=== PATIENT | male | born 1970 | race Caucasian/White ===

== ENCOUNTER 2017-12-07 07:12 | Emergency (ER) | payer SELFPAY ==
[2017-12-07 07:28] VITALS: BP 152/98
--- NOTE | 2017-12-07 07:38 | ED Physician Documentation ---
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 Has not seen a dentist due to financial issues. Had been treating toothache with BC powder but has not worked the past 3 days. Denies any trauma, fever, drooling. Review of Systems Ten Systems: 10 systems reviewed and negative Constitutional: denies: Fever Ears: denies: Ear pain Nose: denies: Rhinorrhea / runny nose, Foreign Body Throat: reports: Dental pain / toothache. denies: Oral lesions / sores, Sore throat Cardiac: denies: Chest pain / pressure PD PAST MEDICAL HISTORY - Past Medical History Past Medical History: No - Past Surgical History Past Surgical History: No - Present Medications Home Medications: Ambulatory Orders Medication Instructions Recorded Confirmed Cephalexin [Keflex] 500 mg PO TID #28 capsule 12/07/17 Hydrocodone/Acetaminophen 1 each PO Q6H PRN #14 tablet 12/07/17 [Hydrocodon-Acetaminophen 5-325] Ibuprofen [Motrin] 600 mg PO Q6H PRN #30 tab 12/07/17 - Allergies Allergies/Adverse Reactions: Allergies Allergy/AdvReac Type Severity Reaction Status Date / Time morphine Allergy Edema Verified 12/07/17 07:22 - Social History Does the pt smoke?: No Smoking Status: Current every day smoker Does the pt drink ETOH?: No Does the pt have substance abuse?: No Substance Use and Type: Marijuana - Family History Family history: reports: Non contributory PD ED PE NORMAL - Vitals Vital signs reviewed: Yes - General General: Alert and oriented X 3, No acute distress - HEENT HEENT: Atraumatic, Moist mucous membranes, Pharynx benign, Other (Diffused dental caries and plaques; a few teeth missing. Tooth #17 with broken with partially missing enamel and a hole and tender to palpation. Tooth #32 with a hole but not tender to percussion. Left jaw slightly more swollen than the right) - Neck Neck: Supple, no meningeal sign, No adenopathy - Cardiac Cardiac: Strong equal pulses - Respiratory Respiratory: No respiratory distress - Derm Derm: Warm and dry - Extremities Extremities: No deformity, Other (ambulatory) - Neuro Neuro: Alert and oriented X 3 - Psych Psych: Normal mood, Normal affect Results - Vitals Vitals: Vital Signs - 24 hr 12/07/17 07:18 Temperature 36.1 C L Heart Rate 94 Respiratory 16 Rate Blood Pressure 152/98 H O2 Saturation 99 Oxygen O2 Source Room air PD MEDICAL DECISION MAKING - ED course Complexity details: considered differential (dental caries, fracture, abscess, gingivitis), d/w patient (community resources including dentists since pt likes [place] and [place]. Discussed hydrocodone side effects and prevention. Will discharge on motrin, hydrocodone and keflex. Pt informed me he had taken hydrocodone before without reactions.) - Sepsis Event Vital Signs: Vital Signs - 24 hr 12/07/17 07:18 Temperature 36.1 C L Heart Rate 94 Respiratory 16 Rate Blood Pressure 152/98 H O2 Saturation 99 Oxygen O2 Source Room air Departure - Departure Disposition: 01 Home, Self Care Clinical Impression: Pain due to dental caries, Dental caries Condition: Good Instructions: ED Tooth Pain, ED Cavity Dental Prescriptions: Cephalexin [Keflex] 500 mg PO TID #28 capsule Hydrocodone/Acetaminophen [Hydrocodon-Acetaminophen 5-325] 1 each PO Q6H PRN #14 tablet PRN Reason: pain Ibuprofen [Motrin] 600 mg PO Q6H PRN #30 tab PRN Reason: Pain Comments: CALL FOR A DENTAL APPOINTMENT A.S.A.P. TAKE THE MEDS PRESCRIBED. MAINTAIN SAFETY WHILE TAKING HYDROCODONE - NO ALCOHOL, NO DRIVING, NO WORKING WITH MACHINERIES. PREVENT CONSTIPATION - TAKE OTC STOOL SOFTENER, DRINK LOTS OF WATER, EAT HIGH FIBER FOODS. WHEN TAKING MOTRIN TAKE IT WITH FOOD. FINISH THE ANTIBIOTIC KEFLEX PRESCRIBED. IF WORSE RETURN TO THE E.R.
== END 2017-12-07 08:02 | disposition home or self-care (01) ==
LOC: ED 07:12
DX: K02.9 Dental caries, unspecified (principal); F17.200 Nicotine dependence, unspecified, uncomplicated
CPT/HCPCS: 99283

== ENCOUNTER 2019-03-13 10:56 | Emergency (ER) | payer SELFPAY ==
--- NOTE | 2019-03-13 12:23 | XRAY Report ---
Reason: pain, swelling rt hand Procedure Date: 03/13/2019 Accession Number: [id number] / [id number] Procedure: XR - Hand 3 View RT CPT Code: Final Report FULL RESULT: EXAM: RIGHT HAND RADIOGRAPHY EXAM DATE: 03/13/2019 11:59 AM. CLINICAL HISTORY: Right hand pain and swelling after trauma. COMPARISON: None. TECHNIQUE: 3 views. FINDINGS: Bones: An acute nondisplaced fracture of the mid diaphysis of the fifth metacarpal is present. No significant angulation. An old healed fracture defect about the proximal third metacarpal present. Joints: Normal. No subluxations. Soft Tissues: Some soft tissue swelling at the fracture site present. IMPRESSION: 1. Nondisplaced acute transverse fracture mid diaphysis fifth metacarpal. 2. Probable old proximal third metacarpal healed fracture. RADIA
[2019-03-13] MEDS ORDERED: HYDROcod/ACETAM 5/325 MG TABLET PO STA (12:59)
[2019-03-13 13:01] VITALS: BP 143/91
--- NOTE | 2019-03-13 13:05 | ED Physician Documentation ---
PD HPI UPPER EXT INJURY - Stated complaint Stated Complaint: RT HAND PX - Chief complaint Chief Complaint: Ext Problem - History obtained from History obtained from: Patient - History of Present Illness Location: Right (He got his hand caught between 2 heavy implements the other day and has severe pain in the right hand.) Review of Systems Constitutional: reports: Reviewed and negative Cardiac: reports: Reviewed and negative Respiratory: reports: Reviewed and negative PD PAST MEDICAL HISTORY - Past Medical History Past Medical History: No HEENT: Other Other Past Medical History: Seasonal Allergies - Past Surgical History Past Surgical History: No - Present Medications Home Medications: Ambulatory Orders Medication Instructions Recorded Confirmed Cephalexin [Keflex] 500 mg PO TID #28 capsule 12/07/17 Hydrocodone/Acetaminophen 1 each PO Q6H PRN #14 tablet 12/07/17 [Hydrocodon-Acetaminophen 5-325] Ibuprofen [Motrin] 600 mg PO Q6H PRN #30 tab 12/07/17 Hydrocodone/Acetaminophen 1 - 2 each PO Q6H PRN #14 tablet 03/13/19 [Hydrocodon-Acetaminophen 5-325] - Allergies Allergies/Adverse Reactions: Allergies Allergy/AdvReac Type Severity Reaction Status Date / Time morphine Allergy Edema Verified 03/13/19 11:45 - Social History Does the pt smoke?: No Smoking Status: Never smoker Does the pt drink ETOH?: No Does the pt have substance abuse?: No - Immunizations Immunizations are current?: No Immunizations: TDAP current <10years PD ED PE NORMAL - Vitals Vital signs reviewed: Yes - General General: Alert and oriented X 3, No acute distress - Extremities Extremities: Other (Enter and swell along the fifth metacarpal of the right hand with limited range of motion due to pain but no loss of saccade or neurovascular deficit in the fingers.) - Neuro Neuro: Alert and oriented X 3, Normal speech Results - Vitals Vitals: Vital Signs - 24 hr 03/13/19 03/13/19 11:41 13:00 Temperature 37.2 C 36.8 C Heart Rate 88 88 Respiratory 16 18 Rate Blood Pressure 144/87 H 143/91 H O2 Saturation 99 98 Oxygen O2 Source Room air - Rads (name of study) R hand 3v Radiology: EMP read contemporaneously (Nondisplaced acute fracture of the midshaft of the fifth metacarpal) Procedures - Splint (location) R hand Splint applied by: Tech Type of splint: Fiberglass, Short arm, Ulnar gutter Other: Patient tolerated well, No complications, Neurovascular intact Departure - Departure Disposition: 01 Home, Self Care Clinical Impression: Fracture of fifth metacarpal bone Qualifiers: Encounter type: initial encounter Fracture type: closed Metacarpal location: shaft Fracture alignment: nondisplaced Laterality: right Qualified Code(s): S62.356A - Nondisplaced fracture of shaft of fifth metacarpal bone, right hand, initial encounter for closed fracture Condition: Good Record reviewed to determine appropriate education?: Yes Instructions: ED Cast Care Fiberglass Follow-Up: [facility] [Provider Group] - Within 1 week Prescriptions: Hydrocodone/Acetaminophen [Hydrocodon-Acetaminophen 5-325] 1 - 2 each PO Q6H PRN #14 tablet PRN Reason: pain Comments: Keep the splint on and dry, do not remove it. Follow-up with the orthopedic surgeon within the week, call today for an appointment. Do not drink or drive while taking narcotic pain medication. Note that many narcotic pain relievers also contain Tylenol/acetaminophen. Please ensure that your total dose of acetaminophen from all sources does not exceed 3 g (3000 mg) per day. You may get constipated while on this medication. Take a stool softener such as Colace twice a day while you are on it. Also add an [id number] laxative such as senna or MiraLAX on any day that you do not have a bowel movement. If you received a narcotic pain medication or sedative while in the emergency department, do not drive for the next 24 hours. Forms: Activity restrictions
== END 2019-03-13 13:11 | disposition home or self-care (01) ==
LOC: ED 10:56
DX: S62.356A Nondisplaced fracture of shaft of fifth metacarpal bone, right hand, initial encounter for closed fracture (principal); W23.0XXA Caught, crushed, jammed, or pinched between moving objects, initial encounter; Y93.E6 Activity, residential relocation
CPT/HCPCS: 73130; 99283; A9270

== ENCOUNTER 2019-04-29 13:27 | Emergency (ER) | payer SELFPAY ==
--- NOTE | 2019-04-29 14:57 | ED Physician Documentation ---
History of Present Illness - Stated complaint Stated Complaint: WORK NOTE - Chief complaint Chief Complaint: General - History obtained from History obtained from: Patient - History of Present Illness Timing: How many weeks ago (6-8) Pain level max: 0 Pain level now: 0 - Additonal information Additional information: 49-year-old male presents to the emergency department stating that he broke his right hand in 2 places approximately 6 to 7 weeks ago. He states he took his splint off a few days ago. Has no symptoms in the hand. Never followed up with orthopedics and wants a release back to work. Nothing makes it better or worse. Review of Systems Constitutional: denies: Fever, Chills Respiratory: denies: Cough GI: denies: Vomiting PD PAST MEDICAL HISTORY - Past Medical History Past Medical History: Yes HEENT: Other - Past Surgical History Past Surgical History: No - Present Medications Home Medications: Ambulatory Orders Medication Instructions Recorded Confirmed No Known Home Medications 04/29/19 04/29/19 - Allergies Allergies/Adverse Reactions: Allergies Allergy/AdvReac Type Severity Reaction Status Date / Time morphine Allergy Edema Verified 04/29/19 13:31 - Social History Does the pt smoke?: No Smoking Status: Never smoker Does the pt drink ETOH?: No Does the pt have substance abuse?: No - Immunizations Immunizations are current?: No Immunizations: TDAP current <10years PD ED PE NORMAL - Vitals Vital signs reviewed: Yes - General General: Alert and oriented X 3, No acute distress - HEENT HEENT: Moist mucous membranes - Derm Derm: Warm and dry - Extremities Extremities: Other (Right hand - no tenderness. mild deformity to the 5th MC. NVI. ) - Neuro Neuro: Alert and oriented X 3 Results - Vitals Vitals: Vital Signs - 24 hr 04/29/19 13:29 Temperature 37.1 C Heart Rate 91 Respiratory 16 Rate Blood Pressure 161/70 H O2 Saturation 99 Oxygen O2 Source Room air PD MEDICAL DECISION MAKING - ED course Complexity details: considered differential, d/w patient ED course: Patient to follow up with orthopedics for further care. He will need further evaluation to determine if his hand is at full function to be used for his work. Patient counseled regarding signs and symptoms for which I believe and urgent re-evaluation would be necessary. Patient with good understanding of and agreement to plan and is comfortable going home at this time This document was made in part using voice recognition software. While efforts are made to proofread this document, sound alike and grammatical errors may occur. Departure - Departure Disposition: 01 Home, Self Care Clinical Impression: Fracture of fifth metacarpal bone Qualifiers: Encounter type: initial encounter Fracture type: closed Metacarpal location: unspecified portion of metacarpal Fracture alignment: nondisplaced Laterality: right Qualified Code(s): S62.306A - Unspecified fracture of fifth metacarpal bone, right hand, initial encounter for closed fracture Condition: Good Instructions: ED Fx Hand Closed Follow-Up: [facility] [Provider Group] - Within 1 week Comments: you need to follow up with orthopedics to be released back to work. Call them today.
[2019-04-29 15:07] VITALS: BP 155/88
== END 2019-04-29 15:07 | disposition home or self-care (01) ==
LOC: ED 13:27
DX: S62.306A Unspecified fracture of fifth metacarpal bone, right hand, initial encounter for closed fracture (principal); X58.XXXA Exposure to other specified factors, initial encounter
CPT/HCPCS: 99281; 99284